=== PATIENT | male | born 1985 ===

== ENCOUNTER 2021-05-05 17:03 | Emergency (ER) | payer SELFPAY ==
--- NOTE | 2021-05-06 10:20 | NUR ---
PT WAQS NOT IN WAITING ROOM WHEN CALLED FOR TRIAGE.
== END 2021-05-06 10:26 | disposition left against medical advice (07) ==
LOC: ER 17:06
DX: Z53.21 Procedure and treatment not carried out due to patient leaving prior to being seen by health care provider (principal)